=== PATIENT | female | born 1965 | race Caucasian/White ===

== ENCOUNTER 2018-12-06 11:39 | Outpatient (CLI) | payer BC ==
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
== END 2018-12-06 11:40 | disposition home or self-care (01) ==
LOC: BICCT 11:39
PROVIDERS: ATTEND Internal Medicine
DX: R91.8 Other nonspecific abnormal finding of lung field (principal); G47.33 Obstructive sleep apnea (adult) (pediatric)
CPT/HCPCS: 71250

== ENCOUNTER 2019-12-06 09:57 | Outpatient (CLI) | payer BC ==
--- NOTE | 2019-12-06 10:34 | CT ---
CHEST CT WITHOUT CONTRAST: HISTORY: Lung nodule. COMPARISON: 12/06/2018. FINDINGS: Mediastinum: Limited evaluation by the lack of IV contrast. There are nonenlarged mediastinal lymph n odes. Heart: Normal size. No significant coronary disease. No significant pericardial fluid. Aorta: Normal caliber. No periaortic fat stranding. Subdiaphragmatic structures: No acute abnormality. Osseous structures: Chronic degenerative changes. No acute abnormality. Trachea and central bronchi: Patent. Pleural spaces: No effusion. Pneumothorax: None. Right lung: Chronic changes. No consolidation or contusion. Left lung: Chronic changes. No consolidation or contusion. Nodules: Right lun.3 cm solid nodule in the right upper lobe, 0.4 cm solid nodule and 0.3 cm solid nodule in the middle lobe, Left lun.7 cm calcified nodule in the lingula, 0.5 cm solid nodule in the lingula, 0.3 cm solid n odule in the left lower lobe x2. These 2 nodules were not commented upon on the previous exam but are present in retrospect. Evaluation of the left lung base is limited due to superimposed groundglas s opacification. There is a stable 0.4 cm nodule in the mid left lower lobe. Nodule noted in the superior segment of the left lower lobe on the previous examination is less evident. Throughout the left and right lung, new suspicious nodules are not appreciated. IMPRESSION: Essentially one year stability with regards to the lung parenchymal nodules. Follow-up CT in one year is recommended to document 2 years of stability. Transcribed Date/Time: 12/06/2019 10:42 AM
== END 2019-12-06 09:58 | disposition home or self-care (01) ==
LOC: BICCT 09:57
PROVIDERS: ATTEND Internal Medicine Critical Care Medicine
DX: R91.8 Other nonspecific abnormal finding of lung field (principal)
CPT/HCPCS: 71250